=== PATIENT | female | born 1950 | race Caucasian/White ===

== ENCOUNTER 2017-04-08 07:31 | Day surgery (SDC) | payer BC ==
[2017-04-08] MEDS ORDERED: Lactated Ringers 1,000 ML IV SCH (09:00)
[2017-04-08] MEDS ORDERED: Propofol 200 MG/20 ML SDV IV ONE (10:00)
--- NOTE | 2017-04-08 10:13 | PREOP ---
ADMISSION DATE: 04/08/2017 CHIEF COMPLAINT: History of pancolitis as well as need for screening colonoscopy. HISTORY OF PRESENT ILLNESS: This is a 66-year-old white female who presents for a followup colonoscopy. Last scope was performed in 2010. She does have a history of some abdominal cramping, which has helped with probiotics. She does have a history of ulcerative colitis and is on sulfasalazine, which prevents her from developing diarrhea. PAST MEDICAL HISTORY: Significant for arthritis as well as substance abuse disorder as well as a history of ulcerative colitis and benign positional vertigo. PAST SURGICAL HISTORY: Significant for appendectomy, , and tubal ligation. ALLERGIES: She has no known drug allergies. CURRENT MEDICATIONS: 1. Sulfazine 500 mg 2 tablets twice a day. 2. Kenalog aristocort ointment applied to the affected area 2 times a day. 3. Antivert 25 mg 1 mg as needed for dizziness every 4 hours. FAMILY HISTORY: Significant for breast cancer, alcohol abuse, lung cancer. Breast cancer in her sister. SOCIAL HISTORY: The patient is , has 5 children. Works as a grocery store courtesy clerk. She does not smoke. Currently does not drink. REVIEW OF SYSTEMS: The patient denies any HEENT issues, respiratory, or cardiovascular. Gastrointestinal is positive for abdominal pain. Musculoskeletal is positive for back pain. PHYSICAL EXAMINATION: GENERAL: This is a well-developed, well-nourished white female in no acute distress. HEENT: Grossly within normal limits. LUNGS: Clear to auscultation. HEART: Had a regular rate and rhythm. ABDOMEN: Soft and nontender. ASSESSMENT: The patient due for a followup colonoscopy. PLAN: C-scope. Risks and procedure were explained to the patient to include bleeding, perforation, and infection. The patient expresses understanding and she asked us to proceed. /[id number] /MODL
--- NOTE | 2017-04-08 10:22 | PCM.OPNOTE ---
- General Post-Op/Procedure Note Date of Surgery/Procedure: 04/08/17 Operative Procedure(s): c scope with bx Findings: normal colon Pre Op Diagnosis: hx of ulcerative colitis Post-Op Diagnosis: Same Anesthesia Technique: MAC Primary Surgeon: Irvin Petty Anesthesia Provider: Amelia Groves Pathology: colon biopsies Complications: None Condition: Good Free Text/Narrative:: see dictation
--- NOTE | 2017-04-08 10:55 | OR ---
DATE OF OPERATION: 04/08/2017 SURGEON: Irivn Petty MD PROCEDURE PERFORMED: Colonoscopy with random biopsies every 10 cm. PREOPERATIVE DIAGNOSIS: History of pancolitis. POSTOPERATIVE DIAGNOSIS: Normal scope. INDICATIONS FOR PROCEDURE: This is a 66-year-old white female, who presents for a followup colonoscopy. She was offered and accepted same. DESCRIPTION OF PROCEDURE: After an excellent IV sedation was administered, digital rectal exam was performed. No marked abnormality was noted. The flexible colonoscope was inserted and advanced to the cecum without difficulty. The prep was excellent. The following findings were noted. Ascending colon, unremarkable. Biopsies taken approximately every 10 cm and submitted in 1 container. Transverse colon, unremarkable. Biopsies taken approximately every 10 cm, submitted in 1 container. Descending colon, unremarkable. Biopsies taken approximately every 10 cm, submitted in 1 container. Sigmoid and rectum the same with biopsies taken every 10 cm. Colon was deflated. Scope was removed. The patient tolerated the procedure well, was taken to recovery room in good condition. /[id number] /[id number]
== END 2017-04-08 11:20 | disposition home or self-care (01) ==
LOC: FB.SDS 07:31
PROVIDERS: ATTEND Surgery
DX: K52.9 Noninfective gastroenteritis and colitis, unspecified (principal); Z79.899 Other long term (current) drug therapy; Z90.49 Acquired absence of other specified parts of digestive tract; Z98.51 Tubal ligation status
CPT/HCPCS: 88305; J2704; J7120

== ENCOUNTER 2022-12-03 07:01 | Day surgery (SDC) | payer MEDICARE, OTHER ==
[~2022-12-03 07:01] MED LIST: Lactated Ringers 1,000 ML IV SCH; Sodium Chloride 0.9% 10 ML Syringe FLUSH PRN
[2022-12-03] MEDS ORDERED: Lidocaine 2% 5 ML SDV INJECT ONE (07:02)
[2022-12-03] MEDS ORDERED: Propofol 200 MG/20 ML SDV IV ONE (07:02)
[2022-12-03] MEDS ORDERED: Simethicone Drops 40 MG/0.6 ML 30 ML Bottle PO ONE (08:41)
== END 2022-12-03 10:06 | disposition home or self-care (01) ==
LOC: FB.SDS 07:01
PROVIDERS: ATTEND Surgery
DX: K63.89 Other specified diseases of intestine (principal); K52.9 Noninfective gastroenteritis and colitis, unspecified; Z87.19 Personal history of other diseases of the digestive system; Z86.010 Personal history of colon polyps; Z79.899 Other long term (current) drug therapy; Z88.2 Allergy status to sulfonamides
CPT/HCPCS: 88305; A9270-GY; J2704; J7120

== ENCOUNTER 2023-06-01 07:45 | Day surgery (SDC) | payer MEDICARE, OTHER ==
[~2023-06-01 07:45] MED LIST changes: -Lactated Ringers 1,000 ML IV SCH
[2023-06-01] MEDS ORDERED: Ondansetron 4 MG/2 ML SDV IVPUSH ONE (07:46)
[2023-06-01] MEDS ORDERED: Propofol 200 MG/20 ML SDV IV ONE (07:46)
[2023-06-01] MEDS ORDERED: Midazolam 1 MG/ML 2 ML SDV IV ONE (07:46)
[2023-06-01] MEDS: Lactated Ringers 1,000 ML IV SCH (08:45)
== END 2023-06-01 10:28 | disposition home or self-care (01) ==
LOC: FB.SDS 07:45
PROVIDERS: ATTEND Surgery
DX: K21.00 Gastro-esophageal reflux disease with esophagitis, without bleeding (principal); K29.80 Duodenitis without bleeding; Z79.899 Other long term (current) drug therapy
CPT/HCPCS: 00731; 88305; 99100; J2250; J2405; J2704; J7120